=== PATIENT | female | born 2000 | race Hispanic/Latino ===

== ENCOUNTER 2024-01-16 09:12 | Observation (INO) | payer OTHER, SELFPAY ==
[2024-01-16] VITALS (9 sets, daily range): BP systolic 98–148; BP diastolic 57–87; BMI 30.5; BMI 30.2
[2024-01-16 05:43] LABS: % Basophils 0.4 % (0-2); % Immature Granulocytes 0.5 % (0-0.5); % Lymphocytes 5.4 % (20.5-51.1); % Neutrophils 89.7 % (42.2-75.2); Absolute Basophils 0.1 10^3/uL (0-0.2); Absolute Immature Granulocytes 0.1 10^3/uL (0-0.05); Absolute Lymphocytes 0.8 10^3/uL (1.2-3.4); Absolute Monocytes 0.6 10^3/uL (0.1-0.6); Absolute Neutrophils 13.5 10^3/uL (1.4-6.5); Hematocrit 47.3 % (37.0-47.0); Hemoglobin 15.3 g/dL (12.0-16.0); Mean Corp Hgb Conc. 32.3 g/dL (33.0-37.0); Mean Corpuscular Hgb 26.6 pg (27.0-31.0); Mean Corpuscular Volume 82.1 fL (81.0-99.0); Mean Platelet Volume 9.5 fL (7.4-10.4); Nucleated Red Blood Cells % 0 %; Platelet Count 292 10^3/uL (130-400); Red Blood Cell Count 5.76 10^6/uL (4.20-5.40); Red Cell Dist. Width 13.5 % (11.5-14.5); White Blood Cell Count 15.1 10^3/uL (4.8-10.8)
[2024-01-16 05:56] LABS: HCG, Serum Qualitative Screen Negative
[2024-01-16 05:59] LABS: ALT (SGPT) 19 U/L (0-35); AST (SGOT) 20 U/L (14-36); Alkaline Phosphatase 103 U/L (38-126); Blood Urea Nitrogen 11 mg/dl (7-17); Calcium 10.6 mg/dl (8.4-10.2); Chloride 103 mmol/L (98-107); Estimated Creatinine Clearance 95 ml/min; Glucose 75 mg/dl (70-99); Lipase 71 U/L (23-300); Potassium 5.1 mmol/L (3.5-5.1); Sodium 142 mmol/L (135-145); Total Bilirubin 1.8 mg/dl (0.2-1.3); Total Protein 10.7 g/dl (6.3-8.2); eGFR > 60.00
[2024-01-16 06:18] LABS: Carbon Dioxide 6 mmol/L (22-30)
[2024-01-16 06:37] LABS: Urine Albumin 3+ (Neg - Trace); Urine Bilirubin Negative (Negative); Urine Character Clear (Clear); Urine Color Yellow; Urine Glucose Negative (Negative); Urine Ketone 3+ (Negative); Urine Leukocyte Negative (Negative); Urine Nitrite Negative (Negative); Urine Occult Blood 1+ (Negative); Urine Specific Gravity 1.025 (<1.030); Urine Urobilinogen Negative (Neg - 1+)
[2024-01-16] MEDS: ZOFRAN 4 MG IV ×2 (06:50→21:08)
[2024-01-16] MEDS: NSS 1000 IV (06:51)
[2024-01-16 06:56] LABS: Urine Bacteria Few (Negative); Urine Red Blood Cell 0-2 /HPF (0-2); Urine White Cell 0-2 /HPF (0-5)
--- NOTE | 2024-01-16 07:03 | ED.GENMED ---
History of Present Illness
General
Chief Complaint: Abdominal Symptoms
Source: patient
Exam Limitations: none
Time Seen by Provider: 01/16/24 06:24
History of Present Illness
History of Present Illness:
23-year-old female started with recurrent vomiting 3 days ago. Started after 2 shots on Sunday afternoon. No diarrhea. Some vague abdominal pain. No fever. No unusual ingestion or overdose. States she is not a chronic alcoholic.
Past History
Past History
ED Past Surgical History: and Tonsilectomy
Review of Systems
Review of Systems
All Other Systems: Not applicable
Constitutional: Denies fever
Respiratory: Reports no symptoms
Cardiac: Reports no symptoms
: Reports no symptoms
Phy Exam
Physical Exam
Physical Exam:
GENERAL: Alert and oriented in no apparent distress
EYE: Orbits normal.
NECK: Supple, no significant adenopathy.
ENT: Pharynx without erythema
CARDIAC: Regular rate and rhythm without any obvious murmurs.
LUNGS: Clear breath sounds,normal
ABDOMEN: Soft, mild tenderness left lower quadrant. Some decreased bowel sounds. No distention. No rebound or guarding no mass or hernia
NEUROLOGICAL: Alert and oriented , grossly non-focal
SKIN: Warm and dry, no rash or lesion, no discoloration, skin intact.
MUSCULOSKELETAL: No edema,no deformity.Good color
PSYCH: Normal and appropriate interaction.
Course
Orders/Labs/Results
Orders:
Orders
01/16/24 05:27
IV Insert/Care/Rem.- Treatment PRN
Test Result ONCE
01/16/24 05:34
Acetaminophen Urgent
Comment: ADD ON
Alcohol Urgent
Complete Blood Count/With Diff Urgent
Comprehensive Metabolic Panel Urgent
Direct Bilirubin Urgent
Comment: ADD ON
Glycohemoglobin (HgbA1c) Urgent
HCG, Serum Qualitative Screen Urgent
Comment: Notify provider if positive test present
Hepatitis C Antibody Urgent
Comment: ADD ON
Lipase Urgent
Salicylate Urgent
Comment: ADD ON
Urinalysis Reflex To Culture Urgent
Date Specimen was Collected: 01/16/24
Time Specimen was Collected: 05:27
Urine Drug Abuse Screen Urgent
Date Specimen was Collected: 01/16/24
Time Specimen was Collected: 05:27
Urine Microscopic Reflex Cult Urgent
Chlamydia/GC by PCR Urgent
PAWEL Source: U
Specimen Description:
Source:: URINE
Date Specimen was Collected: 01/16/24
Time Specimen was Collected: 05:27
Comment: Add on by Desmond Kaur
01/16/24 06:25
CT Abd/Pel (IV only)-DH only Urgent
Comment:
Reason For Exam: Abdominal pain/vomiting
01/16/24 06:26
Norovirus by PCR Urgent
PAWEL Source: Feces/Stool
Specimen Description:
01/16/24 06:34
Cardiac Monitoring- Treatment ONCE
IV Insert/Care/Rem.- Treatment PRN
0.9% Sodium Chloride 1000 ml [Nss] 1,000 ml IV BOLUS
Pulse Ox/cont/shift [RESP] Stat
Quantity: 1
01/16/24 06:35
Add On- LAB Urgent
Tests Added?: alcohol/asa/tylenol
Electrocardiogram (*1) Stat
Reason for Study: Abdominal Pain
EKG- Treatment ONCE
01/16/24 06:47
Ondansetron Injectable [Zofran] 4 mg IV NOW STA
01/16/24 08:00
Sterile Water For Inj [Sterile Water For Injection 1000 ml] 1,000 ml Sodium Bicarbonate 150 meq IV 250 mls/hr
01/16/24 08:26
Add On- LAB Stat
Tests Added?: HgbA1c, direct bili, hepC Ab
01/16/24 08:37
Add On - Microbiology Stat
Tests Added?: Chlamydia GC/PCR
01/16/24 08:41
Add On - Microbiology Stat
Tests Added?: urine drug abuse screen
01/16/24 08:43
Admit/Transfer Patient As Directed
Co-Sign Provider:
Level of Care: Observation services
Assign to:: Medical/Surgical
Physician / Group: Hospitalist
Diagnosis: dehydration
01/16/24 08:44
Code Status As Directed
Resuscitation Status: Full Code
PRN Pain Medication Management As Directed
May give lesser potent ordered pain med per pt: Yes
preference::
Protocol:: Medication orders for pain may be administered in a
manner that supports deferring to patient preference
when the pt is:
- Requesting an ordered lesser potent pain medication.
Least to most potent pain medications are defined
as: acetaminophen < NSAID < tramadol < opioids
(morphine, oxycodone, hydromorphone).
- Requesting a lesser dose of the same medication IF
ORDERED.
- Requesting a less intrusive route of administration
if both routes are prescribed by the provider (PO <
IV).
01/16/24 08:47
US Abdomen - Appendix Only Urgent
Comment:
Reason For Exam: abd pain
US Abdomen Limited Urgent
Reason For Exam: elevate dbili
01/16/24 09:00
0.9% Sodium Chloride [Nss (Preservative Free)] 10 ml IV BID
Pantoprazole [Protonix IV] 40 mg IV BID
Abnormal Lab Results
01/16/24
05:34
WBC 15.1 H 10^3/uL
(4.8-10.8)
RBC 5.76 H 10^6/uL
(4.20-5.40)
Hct 47.3 H %
(37.0-47.0)
MCH 26.6 L pg
(27.0-31.0)
MCHC 32.3 L g/dL
(33.0-37.0)
Abs Immat Gran (auto) 0.1 H 10^3/uL
(0-0.05)
Absolute Neuts (auto) 13.5 H 10^3/uL
(1.4-6.5)
Absolute Lymphs (auto) 0.8 L 10^3/uL
(1.2-3.4)
Neutrophils % 89.7 H %
(42.2-75.2)
Lymphocytes % 5.4 L %
(20.5-51.1)
Carbon Dioxide 6 L* mmol/L
(22-30)
Calcium 10.6 H mg/dl
(8.4-10.2)
Total Bilirubin 1.8 H mg/dl
(0.2-1.3)
Direct Bilirubin 0.6 H mg/dl
(0.0-0.4)
Total Protein 10.7 H g/dl
(6.3-8.2)
Albumin 6.4 H g/dl
(3.5-5.0)
Urine Ketones 3+ A
(Negative)
Ur Occult Blood Reflex 1+ A
(Negative)
Urine Bacteria (Reflex) Few A
(Negative)
Urine Albumin (Reflex) 3+ A
(Neg - Trace)
Salicylates < 1.0 L mg/dl
(2.0-20.0)
Acetaminophen < 10 L ug/ml
(10-30)
U Marijuana (THC) Screen Positive H
(Negative)
01/16/24 05:34
01/16/24 05:34
Vital Signs
Initial and Last Documented VS:
Initial Vital Signs
Temp Pulse Resp BP Pulse Ox
98.5 F 140 20 148/83 100
01/16/24 04:34 01/16/24 04:34 01/16/24 04:34 01/16/24 04:34 01/16/24 04:34
Last Documented Vital Signs
Temp Pulse Resp BP Pulse Ox
98.5 F 106 26 98/64 96
01/16/24 04:34 01/16/24 12:15 01/16/24 12:15 01/16/24 09:00 01/16/24 12:15
MDM/Problems Addressed
Differential Diagnosis Includes:
Patient with recurrent vomiting and significant metabolic acidosis. Denies overdose or ingestion. Discussed with renal. Bicarb 3 A and water. Fluids. Zofran for nausea. Will get a CT scan. Medically will be admitted.
*Pulse Oximetry
Patient hypoxic: no
*Critical Care Note
Total Time (30-74mins, 75-104mins- exclusive of procedures): Not Applicable
ED Attending Note
-
Portions of this chart may have been created with voice recognition software.� Occasional wrong word or��sound alike� substitutions may have occurred due to the inherent limitations of voice recognition software.
Discharge Plan
Departure
Patient Disposition: Admit
Date of Disposition: 01/16/24
Time of Disposition: 07:45
Presentation/result/management discussed w/ accepting MD/DO: Hospitalist
Discharge Problem:
Recurrent vomiting, Severe acidosis
Interventions
Interventions:
*Risk Screen - Suicide Last Done: 01/16/24 04:34
*General Assessment Last Done: 01/16/24 04:34
*Neglect/Abuse Screening Last Done: 01/16/24 08:26
ED- Fall Risk Assessment Last Done: 01/16/24 07:27
*ED COVID-19 Vaccine History Last Done: 01/16/24 04:34
GY-Uonqcx-Rdotxobuhd Assessment Last Done: 01/16/24 05:42
[2024-01-16 07:05] LABS: Acetaminophen < 10 ug/ml (10-30); Alcohol None Detected; Salicylate < 1.0 mg/dl (2.0-20.0)
[2024-01-16 07:53] LABS: Albumin 6.4 g/dl (3.5-5.0)
[2024-01-16] MEDS: SODIUM BICARBONATE 1150 MEQ IV ×3 (08:19→21:08)
--- NOTE | 2024-01-16 08:47 | HPS.HSE ---
Family Physician
-
Family Physician: INTER[facility]IEWE UNKNOWN - PT NOT
Chief Complaint
-
nausea
History of Present Illness
23yo F with PMHx of depression came with nausea/vomiting for 3 days. She was progressively weak and was unable to hold down any fluids. CT ab/pelvis found possible enteritis. Patient c/o mild epigastric and LUQ dyscomfort. Patient is afebrile and
clinically dehydration with metabolic acidosis. Was able to tolerate water intake after Zofran. When seen during admission: comfortable, not in distress with non-tender abdomen without RUQ tenderness. No DIarrhea reported. Patient had an alcoholic
drink 3 days ago and developed symptoms aferwards
Medical History
Past Medical History
Past Medical History: Reports Other
Additional Past Medical History:
see above
Past Surgical History: Reports None
Social History
Tobacco: Vaping
Alcohol: Occasional
Drug: Marijuana (not over past month)
Family History
Family History: Not pertinent
Allergies / Home Medications
Allergies reflects when Allergies were last updated in [facility].
Home Medications with original date entered in [facility]
Allergy/Medication List:
Allergies
Allergy/AdvReac Type Severity Reaction Status Date / Time
No Known Allergies Allergy Verified 01/16/24 04:33
No home meds
Review of Systems
-
A 12 point ROS was completed and negative except as noted: Yes
Constitutional: Reports No Symptoms
Abdomen/GI: Reports See HPI
Physical Exam
Vital Signs
Vital Signs
Temp Pulse Resp BP Pulse Ox
98.5 F 108 20 124/87 100
01/16/24 04:34 01/16/24 06:55 01/16/24 06:55 01/16/24 08:00 01/16/24 08:15
Physical Exam
General: Well Developed, Well Nourished and No Apparent Distress
HEENT: NormoCephalic and Anicteric; No Moist mucous membranes
Respiratory: Clear; No Wheezes, Rales or Rhonchi
Cardiac: S1/S2 and Regular Rhythm; No Tachycardia
GI: Soft, Non Tender and Non Distended
Musculoskeletal: No Clubbing, No Cyanosis and No Edema
Skin: Warm and Other (scars on L forearm); No Jaundice
Neuro: Awake, Alert, Oriented and AO x 3
Psych: Calm
Laboratory Results
-
01/16/24 05:34
01/16/24 05:34
Laboratory Results
Total Bilirubin 1.8 mg/dl (0.2-1.3) H 01/16/24 05:34
AST 20 U/L (14-36) 01/16/24 05:34
ALT 19 U/L (0-35) 01/16/24 05:34
Alkaline Phosphatase 103 U/L (38-126) 01/16/24 05:34
Lipase 71 U/L (23-300) 01/16/24 05:34
Data Reviewed
-
CT Scan: Report Reviewed by me
Lab Data: Labs Reviewed by me
Impression/Plan
-
A/P
#Nausea, most likekly gastroenteritis
#HAGMA 2/2 vomiting and dehydration (as noted with hemoconcentration and minimal hypercalcemia)
Zofran
CLD on admission and advance diet as tolerated
Bicarb drip
serial BMP
Lipase WNL
UA neg for UTI
Check chlamidia and gonorrhea, however no dysuria
bHCG neg, also pt currently lactating
Check HgbA1c and TSH
PPI
#Leukocytosis
most likely reactive
patient afebrile
follow off Abx
no clinical suspiscion for appendicitis or PID at this time since abd not acute and no dysuria symptoms
#mild bilirubin elevation
US RUQ
follow LFT
no RUQ tenderness
most likely dehydration
#Hx of depression
denied suicidal ideation or intention to self-harm
DVT ppx lovenox
Full code
I have spent at least 78min reviewing chart, test results, communication with cosnultants and direct patient care
[2024-01-16 09:26] LABS: Direct Bilirubin 0.6 mg/dl (0.0-0.4)
[2024-01-16 09:38] LABS: Amphetamines Negative (Negative); Marijuana Positive (Negative)
[2024-01-16 09:39] LABS: Barbiturates Negative (Negative); Benzodiazepines Negative (Negative); Buprenorphine Negative (Negative); Cocaine Negative (Negative); Methadone Negative (Negative); Methamphetamines Negative (Negative); Opiates Negative (Negative)
[2024-01-16 09:40] LABS: Phencyclidine Negative (Negative); Tricyclic Antidepressants Negative (Negative)
[2024-01-16] MEDS: PROTONIX IV 40 MG IV ×2 (10:21→21:09)
[2024-01-16] MEDS: NSS (PRESERVATIVE FREE) 10 ML IV ×2 (10:22→21:09)
--- NOTE | 2024-01-16 19:22 | PTCARENOTE ---
received patient from ED to room 1142. pt ambulated from stretcher to bed without difficulty. pt oriented to room and unit
[2024-01-16] MEDS: SODIUM BICARBONATE IV (20:10)
[2024-01-16] MEDS: LOVENOX 40 MG SC (21:09)
[2024-01-16 21:33] LABS: Blood Urea Nitrogen 7 mg/dl (7-17); Calcium 9.7 mg/dl (8.4-10.2); Carbon Dioxide 15 mmol/L (22-30); Chloride 99 mmol/L (98-107); Estimated Creatinine Clearance 121 ml/min; Glucose 71 mg/dl (70-99); Potassium 3.4 mmol/L (3.5-5.1); Sodium 136 mmol/L (135-145); eGFR > 60.00
[2024-01-17 01:41] LABS: Blood Urea Nitrogen 7 mg/dl (7-17); Calcium 9.3 mg/dl (8.4-10.2); Carbon Dioxide 25 mmol/L (22-30); Chloride 98 mmol/L (98-107); Estimated Creatinine Clearance 121 ml/min; Glucose 87 mg/dl (70-99); Potassium 3.3 mmol/L (3.5-5.1); Sodium 138 mmol/L (135-145); eGFR > 60.00
[2024-01-17] MEDS: SODIUM BICARBONATE 1150 MEQ IV (03:37)
[2024-01-17] MEDS: KCL 40 MEQ PO ×2 (06:24→11:35)
[2024-01-17 07:00] VITALS: BP 110/67
[2024-01-17] MEDS: NSS (PRESERVATIVE FREE) 10 ML IV (07:50)
[2024-01-17] MEDS: PROTONIX IV 40 MG IV (07:50)
[2024-01-17 07:54] LABS: % Eosinophils 1.2 % (0-6); % Immature Granulocytes 0.3 % (0-0.5); % Lymphocytes 31.9 % (20.5-51.1); % Monocytes 11.6 % (1.7-9.3); Absolute Basophils 0.1 10^3/uL (0-0.2); Absolute Eosinophils 0.1 10^3/uL (0-0.7); Absolute Lymphocytes 1.9 10^3/uL (1.2-3.4); Absolute Monocytes 0.7 10^3/uL (0.1-0.6); Absolute Neutrophils 3.2 10^3/uL (1.4-6.5); Hematocrit 36.3 % (37.0-47.0); Hemoglobin 12.3 g/dL (12.0-16.0); Mean Corp Hgb Conc. 33.9 g/dL (33.0-37.0); Mean Corpuscular Hgb 26.9 pg (27.0-31.0); Mean Corpuscular Volume 79.3 fL (81.0-99.0); Mean Platelet Volume 9.7 fL (7.4-10.4); Nucleated Red Blood Cells % 0 %; Platelet Count 209 10^3/uL (130-400); Red Blood Cell Count 4.58 10^6/uL (4.20-5.40); Red Cell Dist. Width 13.2 % (11.5-14.5); White Blood Cell Count 5.9 10^3/uL (4.8-10.8)
[2024-01-17 08:06] LABS: ALT (SGPT) 14 U/L (0-35); AST (SGOT) 19 U/L (14-36); Albumin 4.4 g/dl (3.5-5.0); Alkaline Phosphatase 65 U/L (38-126); Blood Urea Nitrogen 6 mg/dl (7-17); Calcium 9.2 mg/dl (8.4-10.2); Carbon Dioxide 29 mmol/L (22-30); Chloride 97 mmol/L (98-107); Estimated Creatinine Clearance 121 ml/min; Glucose 90 mg/dl (70-99); Magnesium 1.9 mg/dl (1.6-2.3); Potassium 3.2 mmol/L (3.5-5.1); Sodium 138 mmol/L (135-145); Total Bilirubin 2.2 mg/dl (0.2-1.3); Total Protein 7.3 g/dl (6.3-8.2); eGFR > 60.00
--- NOTE | 2024-01-17 08:48 | W.PN.HOSP.TC ---
Today's Communication/Plan
-
advance diet
replete potassium
check LDH
if tolerating diet - D/C
Assessment / Plan
Assessment / Plan
23yo F with PMHx of depression came with nausea/vomiting for 3 days. She was progressively weak and was unable to hold down any fluids. CT ab/pelvis found possible enteritis. Patient c/o mild epigastric and LUQ dyscomfort. No diarrhea in hospital.
Positive marijuana in urine. Managed for cannabis induced vomiting. Tolerated oral intake and acidosis corrected
A/P
#Nausea, most likely combination of enteritis and cannabis-induced vomiting
#HAGMA 2/2 vomiting and dehydration (as noted with hemoconcentration and minimal hypercalcemia)
Zofran
CLD on admission and advance diet as tolerated
Bicarb drip stopped
serial BMP
Lipase WNL
UA neg for UTI
chlamidia and gonorrhea neg
bHCG neg, also pt currently lactating
HgbA1c WNL
PPI
#Leukocytosis
most likely reactive - resolved
patient afebrile
follow off Abx
no clinical suspicion for appendicitis as per imaging
#Hypokalemia
2/2 vomiting
replete
#mild indirect bilirubin
US RUQ neg for acute hepatobiliary findings
follow LFT
no RUQ tenderness
most likely dehydration, vomiting and cannot exclude Gilbert - check LDH
Outpatient LFT by PCP in 1 week
#Hx of depression
denied suicidal ideation or intention to self-harm
DVT ppx lovenox
Full code
I have spent at least 38min reviewing chart, test results and direct patient care
Anticipated Discharge: Within 24 hours
Subjective/Interval History
-
Date of Service: January 17, 2024
Objective Data
-
Labs:
Laboratory Results
12/12/2901/17/24 01/17/24
21:01 01:16 07:12
WBC 5.9
Hgb 12.3
Hct 36.3 L
Plt Count 209 D
Sodium 136 138 138
Potassium 3.4 L D 3.3 L 3.2 L
Chloride 99 98 97 L
Carbon Dioxide 15 L 25 29
BUN 7 7 6 L
Creatinine 0.7 0.7 0.7
Glucose 71 87 90
Calcium 9.7 9.3 9.2
Total Bilirubin 2.2 H
AST 19
ALT 14
Alkaline Phosphatase 65
Vital Signs:
Vital Signs
Temp Pulse Resp BP Pulse Ox
98.3 F 83 12 110/67 96
01/17/24 07:00 01/17/24 07:00 01/17/24 07:00 01/17/24 07:00 01/17/24 07:00
I&O
01/16/24 01/17/24 01/18/24
06:59 06:59 06:59
Intake Total 1800 / 1800
Balance 1800 / 1800
Review of Systems
-
History Source: Patient
All other systems: Reviewed and negative
Physical Exam
-
General: Comfortable
Neuro: Awake, Alert, Oriented and AO x 3
Psych: Calm
--- NOTE | 2024-01-17 09:09 | LACTATION ---
jorge Mcmahon her 10 month old baby Alicia. She says her breasts were feeling soft in the past 24 hours but feel sharma today. Baby appears to be nursing normally. baby takes a variety of solid foods which should be an adequate
supplement/complement if milk production is low for a day or 2 from mom's dehydration.
[2024-01-17 10:08] LABS: LDH 165 U/L (120-246)
--- NOTE | 2024-01-17 10:45 | PTCARENOTE ---
Pt ate breakfast of yoruba toast and [place]. Also drinking water and melecio betty. Tolerating all well. Pt says she feels good - denies n/v/abd pain.
--- NOTE | 2024-01-17 11:27 | W.DCSUMMARY ---
Discharge Summary
Discharge Data
Date of Admission: 01/16/24
Date of Discharge: 01/17/24
-
Pending Results: No
Hospital Course
23yo F with PMHx of depression came with nausea/vomiting for 3 days. She was progressively weak and was unable to hold down any fluids. CT ab/pelvis found possible enteritis. Patient c/o mild epigastric and LUQ dyscomfort. No diarrhea in hospital.
Positive marijuana in urine. Managed for cannabis induced vomiting. Tolerated oral intake and acidosis corrected. Medically stable and agreeable for d/c
I have spent at least 38min reviewing chart, test results and direct patient care
Patient was managed for:
#Nausea, most likely combination of enteritis and cannabis-induced vomiting
#HAGMA 2/2 vomiting and dehydration (as noted with hemoconcentration and minimal hypercalcemia)
#Leukocytosis
#Hypokalemia
#mild indirect bilirubin - [place]
#Hx of depression
Discharge Plan
-
Patient Disposition: Home (Routine Discharge)
Discharge Diagnosis/Procedures: Cannabis induced nausea
Diet: Regular
Activity: No restrictions
Driving Restrictions: As prior to admission
Blood Work: Follow with your primary care doctor to repeat liver function test in 1-2 weeks upon d/c
Referrals:
UNKNOWN - PT NOT,INTERVIEWE [Family Provider] -
Prescriptions:
No Action
No Current Medications
0
Discharge Orders:
Discharge Patient (As Directed); Ordered 01/17/24
Ordered By: Can Hernandez
Discharge Date and Time
Print Language: CANADIAN
[2024-01-17] MEDS: AFLURIA (36 mos+) 2024-2025 FORMULA 0.5 ML IM (11:36)
--- NOTE | 2024-01-17 12:08 | CM ---
Patient seen bedside.
IA completed.
patient lives with spouse and 10 mo old daughter
2 story home
Independent prior to admission
Drives.
PCP information provided.
Ph[facility]acy: [facility]
Plan: home no needs.
Observation form reviewed.
[2024-01-17 12:09] VITALS: BP 134/76
[2024-01-17 20:00] LABS: Hepatitis C Antibody Negative (Negative)
== END 2024-01-17 12:12 | disposition home or self-care (01) ==
LOC: 1 ACUTE 09:12
PROVIDERS: Student in an Organized Health Care Education/Training Program; ADMITTING PHYSICIAN Internal Medicine; EMERGENCY PHYSICIAN Emergency Medicine
DX: R11.2 Nausea with vomiting, unspecified (principal); F12.90 Cannabis use, unspecified, uncomplicated; E86.0 Dehydration; E87.20 Acidosis, unspecified; R53.1 Weakness; R10.9 Unspecified abdominal pain; F17.290 Nicotine dependence, other tobacco product, uncomplicated; R16.0 Hepatomegaly, not elsewhere classified; E80.4 Gilbert syndrome; K42.9 Umbilical hernia without obstruction or gangrene; R00.0 Tachycardia, unspecified; E83.52 Hypercalcemia; E87.6 Hypokalemia; F32.A Depression, unspecified; D72.829 Elevated white blood cell count, unspecified; Z23 Encounter for immunization
CPT/HCPCS: 74177; 76705; 80048; 80053; 80143; 80179; 80306; 81003; 81015; 82077; 82248; 83036; 83615; 83690; 83735; 84703; 85025; 86803; 87491; 87591; 90686; 93005; 94760; 96365; 96366; 96375; 99285; 99406; G0008; G0378; Q9967

== ENCOUNTER 2024-05-13 11:24 | Emergency (ER) | payer OTHER, SELFPAY ==
[2024-05-13 11:26] VITALS: BP 125/70
--- NOTE | 2024-05-13 12:28 | ED.GENMED ---
History of Present Illness
<Larisa Whatley MD, Resident - Last Filed: 05/13/24 15:56>
General
Chief Complaint: Abdominal Symptoms
Time Seen by Provider: 05/13/24 11:39
History of Present Illness
History of Present Illness:
This is a 24-year-old female who presents to the ED complaining of diarrhea, nausea, vomiting ongoing for the past 4 days. Patient reports she had a meal on Sunday night, started experiencing a sensitive stomach and then symptoms started. In
addition she states her ate the same meal and had similar symptoms but symptoms resolved the next day. Patient reports she has been unable to hold meals since this episode, and has vomited twice today. She reports generalized abdominal
tenderness that started after the meal. She states pain is a 6 out of 10. Her diarrhea episodes relieve the pain. She denies blood in her stool. In addition, she reports fever and chills that resolved today. Patient also admits right breast
pain. She reports feeling clogged ducts from breast-feeding that started on Sunday. In addition she admits redness and warmth of right breast.
Past History
<Larisa Whatley MD, Resident - Last Filed: 05/13/24 15:56>
Past History
ED Past Surgical History: and Tonsilectomy
Social History
Tobacco: Vaping
Alcohol: Occasional
Drug: None
Living: with family
Review of Systems
<Larisa Whatley MD, Resident - Last Filed: 05/13/24 15:56>
Review of Systems
Constitutional: Denies fever or chills
EENT: Reports no symptoms
Respiratory: Reports no symptoms
Cardiac: Reports no symptoms
ABD/GI: Reports abdominal pain, nausea, vomiting and diarrhea
Musculoskeletal: Reports no symptoms
Phy Exam
<Larisa Whatley MD, Resident - Last Filed: 05/13/24 15:56>
General Physical Exam
General Presentation: well appearing and no apparent distress
General Skin: warm, dry and other (Bilateral breast soft and nontender bilaterally without masses, erythema, warmth or fluctuance. No nipple discharge or skin changes noted)
General Mental: alert
General Hydration: dry mucous membranes
Cardiovascular Exam
Cardiovascular Exam: regular rate/rhythm and no edema
Pulmonary Exam
Pulmonary Exam: lungs clear and no respiratory distress
Gastrointestinal Exam
Gastrointestinal Exam: normal bowel sounds, soft, non distended and tender (Generalized abdominal tenderness)
Musculoskeletal Exam
Musculoskeletal Exam: full ROM
Psychiatric Exam
Psychiatric Exam: normal mood/affect
Course
<Larisa Whatley MD, Resident - Last Filed: 05/13/24 15:56>
Orders/Labs/Results
Orders:
Orders
05/13/24 12:23
IV Insert/Care/Rem.- Treatment PRN
Stool Culture Urgent
PAWEL Source: Feces/Stool
Specimen Description:
0.9% Sodium Chloride 250 ml [Nss] 250 ml IV BOLUS
Pantoprazole [Protonix IV] 40 mg IV NOW STA
Test Result ONCE
05/13/24 12:24
CT Abd/Pel (IV only)-DH only Urgent
Comment:
Reason For Exam: abdominal tenderness, diarrhea
05/13/24 12:29
Ondansetron Injectable [Zofran] 8 mg IV NOW STA
05/13/24 12:30
Add On- LAB Stat
Tests Added?: lipase
05/13/24 12:40
Complete Blood Count/With Diff Urgent
Comprehensive Metabolic Panel Urgent
HCG, Serum Qualitative Screen Urgent
Lipase Urgent
05/13/24 13:06
Norovirus by PCR Urgent
PAWEL Source: Feces/Stool
Specimen Description:
Abnormal Lab Results
05/13/24
12:40
WBC 12.3 H 10^3/uL
(4.8-10.8)
Hct 36.1 L %
(37.0-47.0)
MCV 80.0 L fL
(81.0-99.0)
Absolute Neuts (auto) 11.0 H 10^3/uL
(1.4-6.5)
Absolute Lymphs (auto) 0.7 L 10^3/uL
(1.2-3.4)
Neutrophils % 89.5 H %
(42.2-75.2)
Lymphocytes % 5.4 L %
(20.5-51.1)
Carbon Dioxide 19 L mmol/L
(22-30)
Glucose 66 L mg/dl
(70-99)
Total Bilirubin 2.5 H mg/dl
(0.2-1.3)
05/13/24 12:40
05/13/24 12:40
Vital Signs
Initial and Last Documented VS:
Initial Vital Signs
Temp Pulse Resp BP Pulse Ox
98.2 F 82 18 125/70 97
05/13/24 11:26 05/13/24 11:26 05/13/24 11:26 05/13/24 11:26 05/13/24 11:26
Last Documented Vital Signs
Temp Pulse Resp BP Pulse Ox
98.2 F 84 18 104/70 98
05/13/24 11:26 05/13/24 14:16 05/13/24 14:16 05/13/24 14:16 05/13/24 14:16
[place];Eddi Logan DO - Last Filed: 05/13/24 13:07>
Orders/Labs/Results
Orders:
Orders
05/13/24 12:23
IV Insert/Care/Rem.- Treatment PRN
Stool Culture Urgent
PAWEL Source: Feces/Stool
Specimen Description:
0.9% Sodium Chloride 250 ml [Nss] 250 ml IV BOLUS
Pantoprazole [Protonix IV] 40 mg IV NOW STA
Test Result ONCE
05/13/24 12:24
CT Abd/Pel (IV only)-DH only Urgent
Comment:
Reason For Exam: abdominal tenderness, diarrhea
05/13/24 12:29
Ondansetron Injectable [Zofran] 8 mg IV NOW STA
05/13/24 12:30
Add On- LAB Stat
Tests Added?: lipase
05/13/24 12:40
Complete Blood Count/With Diff Urgent
Comprehensive Metabolic Panel Urgent
HCG, Serum Qualitative Screen Urgent
Lipase Urgent
05/13/24 13:06
Norovirus by PCR Urgent
PAWEL Source: Feces/Stool
Specimen Description:
Abnormal Lab Results
05/13/24
12:40
WBC 12.3 H 10^3/uL
(4.8-10.8)
Hct 36.1 L %
(37.0-47.0)
MCV 80.0 L fL
(81.0-99.0)
Absolute Neuts (auto) 11.0 H 10^3/uL
(1.4-6.5)
Absolute Lymphs (auto) 0.7 L 10^3/uL
(1.2-3.4)
Neutrophils % 89.5 H %
(42.2-75.2)
Lymphocytes % 5.4 L %
(20.5-51.1)
Carbon Dioxide 19 L mmol/L
(22-30)
Glucose 66 L mg/dl
(70-99)
Total Bilirubin 2.5 H mg/dl
(0.2-1.3)
05/13/24 12:40
05/13/24 12:40
Vital Signs
Initial and Last Documented VS:
Initial Vital Signs
Temp Pulse Resp BP Pulse Ox
98.2 F 82 18 125/70 97
05/13/24 11:26 05/13/24 11:26 05/13/24 11:26 05/13/24 11:26 05/13/24 11:26
Last Documented Vital Signs
Temp Pulse Resp BP Pulse Ox
98.2 F 84 18 104/70 98
05/13/24 11:26 05/13/24 14:16 05/13/24 14:16 05/13/24 14:16 05/13/24 14:16
<Jeffy Dawkins, DO - Last Filed: 05/13/24 16:10>
Orders/Labs/Results
Orders:
Orders
05/13/24 12:23
IV Insert/Care/Rem.- Treatment PRN
Stool Culture Urgent
PAWEL Source: Feces/Stool
Specimen Description:
0.9% Sodium Chloride 250 ml [Nss] 250 ml IV BOLUS
Pantoprazole [Protonix IV] 40 mg IV NOW STA
Test Result ONCE
05/13/24 12:24
CT Abd/Pel (IV only)-DH only Urgent
Comment:
Reason For Exam: abdominal tenderness, diarrhea
05/13/24 12:29
Ondansetron Injectable [Zofran] 8 mg IV NOW STA
05/13/24 12:30
Add On- LAB Stat
Tests Added?: lipase
05/13/24 12:40
Complete Blood Count/With Diff Urgent
Comprehensive Metabolic Panel Urgent
HCG, Serum Qualitative Screen Urgent
Lipase Urgent
05/13/24 13:06
Norovirus by PCR Urgent
PWAEL Source: Feces/Stool
Specimen Description:
Abnormal Lab Results
05/13/24
12:40
WBC 12.3 H 10^3/uL
(4.8-10.8)
Hct 36.1 L %
(37.0-47.0)
MCV 80.0 L fL
(81.0-99.0)
Absolute Neuts (auto) 11.0 H 10^3/uL
(1.4-6.5)
Absolute Lymphs (auto) 0.7 L 10^3/uL
(1.2-3.4)
Neutrophils % 89.5 H %
(42.2-75.2)
Lymphocytes % 5.4 L %
(20.5-51.1)
Carbon Dioxide 19 L mmol/L
(22-30)
Glucose 66 L mg/dl
(70-99)
Total Bilirubin 2.5 H mg/dl
(0.2-1.3)
05/13/24 12:40
05/13/24 12:40
Vital Signs
Initial and Last Documented VS:
Initial Vital Signs
Temp Pulse Resp BP Pulse Ox
98.2 F 82 18 125/70 97
05/13/24 11:26 05/13/24 11:26 05/13/24 11:26 05/13/24 11:26 05/13/24 11:26
Last Documented Vital Signs
Temp Pulse Resp BP Pulse Ox
98.2 F 84 18 104/70 98
05/13/24 11:26 05/13/24 14:16 05/13/24 14:16 05/13/24 14:16 05/13/24 14:16
<Larisa Whatley MD, Resident - Last Filed: 05/13/24 15:56>
MDM/Problems Addressed
MDM/Problems Addressed:
24-year-old female presents complaining of diarrhea, nausea, vomiting and right breast tenderness secondary to breast-feeding. Patient afebrile on presentation. Physical examination with generalized abdominal tenderness. Breast examination
without masses, erythema, warmth or fluctuance. No nipple discharge. Patient reports GI symptoms started on Sunday,right breast symptoms started on Sunday. At this time, we will check stool cultures, start on IV fluids, PPI, Zofran. Given fever
and chills at home, will check CT scan abdomen.
<Larisa Whatley MD, Resident - Last Filed: 05/13/24 15:56>
*Critical Care Note
Total Time (30-74mins, 75-104mins- exclusive of procedures): Not Applicable
<Jeffy Dawkins, DO - Last Filed: 05/13/24 16:10>
Update Note
Update Note:
Care of patient was transitioned earlier on pending CT. There is clinical concern for gastroenteritis. CT confirms this. Patient was initially complaining of right breast pain. She is breast-feeding. She states her pain has significantly proved
with warm compresses and continuation of breast-feeding. We discussed the possibility of early mastitis but she is already feeling better. She feels comfortable going home with a prescription of Zofran
ED Attending Note
<Larisa Whatley MD, Resident - Last Filed: 05/13/24 15:56>
-
Portions of this chart may have been created with voice recognition software.� Occasional wrong word or��sound alike� substitutions may have occurred due to the inherent limitations of voice recognition software.
<Eddi Logan, DO - Last Filed: 05/13/24 13:07>
ED Attending Note
Patient seen and examined by attending physician: Yes
I performed a history and physical exam of patient and discussed management with resident, I reviewed resident's note and agree with documented findings and plan of care.: Yes
ED Attending Note:
Seen with resident examined independently 24-year-old female few days of fever chills nausea vomiting upper abdominal pain
With diarrhea
Discharge Plan
Departure
Patient Disposition: Home (Routine Discharge)
Date of Disposition: 05/13/24
Time of Disposition: 16:09
Patient with high blood pressure during this ER visit?: No
Discharge Problem:
Gastroenteritis
Instructions: Viral gastroenteritis in adults
Prescriptions:
New
ondansetron 4 mg Tablet,Disintegrating
4 mg PO BIDPRN PRN (Reason: nausea/vomiting) Qty: 10 0RF
Referrals:
NONE,* [Family Provider] -
Larisa Whatley MD, Resident [Emergency Midlevel Provider] - Call in 1-3 days for appt (call our clinic( family medicine residency practice) to schedule an appointment [phone] )
Activity Restrictions/Additional Instructions:
Please return for any worsening symptoms.
You may return at any time if you have further concerns.
Please follow up with your doctor at the first available appointment, preferably this week.
Thank you for choosing [facility].
Interventions
Interventions:
*Risk Screen - Suicide Last Done: 05/13/24 11:26
*General Assessment Last Done: 05/13/24 11:26
[id number] Assessment Last Done: 05/13/24 13:28
Discharge Date and Time
Print Language: GERMAN
[2024-05-13] MEDS: NSS 250 IV (12:41)
[2024-05-13] MEDS: PROTONIX IV 40 MG IV (12:42)
[2024-05-13] MEDS: ZOFRAN 8 MG IV (12:42)
[2024-05-13 12:54] LABS: % Basophils 0.4 % (0-2); % Eosinophils 1.1 % (0-6); % Immature Granulocytes 0.3 % (0-0.5); % Lymphocytes 5.4 % (20.5-51.1); % Monocytes 3.3 % (1.7-9.3); % Neutrophils 89.5 % (42.2-75.2); Absolute Basophils 0.1 10^3/uL (0-0.2); Absolute Eosinophils 0.1 10^3/uL (0-0.7); Absolute Lymphocytes 0.7 10^3/uL (1.2-3.4); Absolute Monocytes 0.4 10^3/uL (0.1-0.6); Hematocrit 36.1 % (37.0-47.0); Hemoglobin 12.3 g/dL (12.0-16.0); Mean Corp Hgb Conc. 34.1 g/dL (33.0-37.0); Mean Corpuscular Hgb 27.3 pg (27.0-31.0); Mean Platelet Volume 9.9 fL (7.4-10.4); Nucleated Red Blood Cells % 0 %; Platelet Count 256 10^3/uL (130-400); Red Blood Cell Count 4.51 10^6/uL (4.20-5.40); Red Cell Dist. Width 13.2 % (11.5-14.5); White Blood Cell Count 12.3 10^3/uL (4.8-10.8)
[2024-05-13 13:11] LABS: HCG, Serum Qualitative Screen Negative
[2024-05-13 13:15] LABS: ALT (SGPT) 14 U/L (0-35); AST (SGOT) 15 U/L (14-36); Albumin 4.6 g/dl (3.5-5.0); Alkaline Phosphatase 86 U/L (38-126); Blood Urea Nitrogen 9 mg/dl (7-17); Calcium 10.1 mg/dl (8.4-10.2); Carbon Dioxide 19 mmol/L (22-30); Chloride 106 mmol/L (98-107); Glucose 66 mg/dl (70-99); Lipase 46 U/L (23-300); Potassium 3.8 mmol/L (3.5-5.1); Sodium 142 mmol/L (135-145); Total Bilirubin 2.5 mg/dl (0.2-1.3); Total Protein 7.7 g/dl (6.3-8.2); eGFR > 60.00
[2024-05-13 14:16] VITALS: BP 104/70
[2024-05-13 16:28] VITALS: BP 116/72
== END 2024-05-13 16:29 | disposition home or self-care (01) ==
LOC: EMR 11:24
PROVIDERS: Student in an Organized Health Care Education/Training Program; EMERGENCY PHYSICIAN Emergency Medicine
DX: K52.9 Noninfective gastroenteritis and colitis, unspecified (principal); F17.290 Nicotine dependence, other tobacco product, uncomplicated
CPT/HCPCS: 99285; 96374; 96375; 96361; 74177; 80053; 83690; 84703; 85025; Q9967